=== PATIENT | female | born 1965 | race Caucasian/White ===

== ENCOUNTER → 2016-07-25 | Day surgery (SDC) | payer OTHER ==
[~2016-07-25] MED LIST: ACETAMINOPHEN 1000 MG/100 ML VIAL IV ONE; BACITRACIN IM FOR SOLN 50,000 UNIT VIAL ONE; BUPIVACAINE/EPINEPHRINE 0.25% PF 30 ML VIAL ONE; CYMB60CA PO; DOXY100T PO; FAMC500T23 PO; GENTAMICIN SULFATE 80 MG/2 ML VIAL ONE; LACTATED RINGER'S 1000 ML INJ 1,000 ML ONE; LIDOCAINE 1%/EPINEPHrine 1:100,000 SOLN 30 ML VIAL ONE; MIDAZOLAM HCL 2 MG/2 ML VIAL ONE; ONDANSETRON HCL 4 MG/2 ML VIAL IV PUSH ONE; PROPOFOL 100 MG/10 ML INJ IV ONE; PSEU30TA PO; REST0.05 OU; SODIUM CHLORIDE 0.9% INJ 10 ML ONE; SPIR25 PO; SYNT88TA PO; TAB-TAB PO; TAMO20TA4 PO; TIZA2TAB PO; TRAZ50TA78 PO; VANCOMYCIN 500 MG VIAL ONE
--- NOTE | 2016-07-25 09:02 | TN ---
cc: DIANNA LAWRENCE M.D. DATE OF SURGERY: 07/25/2016 PREOPERATIVE DIAGNOSIS Bilateral mastectomy with further encapsulation of the left breast and asymmetry bilaterally. POSTOPERATIVE DIAGNOSIS Bilateral mastectomy with further encapsulation of the left breast and asymmetry bilaterally. PROCEDURE Bilateral removal and replacement of implants with SRX Adriano Petersen 525. Serial number of the right breast implant [id number]. Serial number of the left breast implant device [id number]. We did some capsulotomies. Lateral capsulorrhaphies were done in the right breast. Reinforcement of the villanueva on the left breast utilizing 6 x 16 AlloDerm thick. COMPLICATIONS None. DRAINS None. DETAILS OF PROCEDURE She was properly consented, marked and properly anesthetized. The skin was sterilized with Betadine solution, sterile draping applied. Through the previous inframammary incision a trapdoor incision was carried out and the implant was removed without any difficulty. Irrigation with antibiotic solution was carried out in the pocket. Capsulorrhaphies were done on the lateral wall of the right breast and capsulotomies where needed in order to establish a soft contour. With this our attention was directed to the left breast where indeed the implant was found to have on a linear crease a defect. This appeared to be micro leaking however there was definitely a ruptured implant. After this was properly removed and thoroughly irrigated, I performed the proper capsulotomies not only in the horizontal but radial aspect in order to accommodate the new implant. To avoid further contraction I proceeded and performed the reinforcement with a 6 x 16 AlloDerm which was anchored in each corner down to the inframammary fold and to the chest wall medially and laterally. The new implant was introduced and the ADM properly wrapped this area and secured utilizing #1 nylon suture with Xeroform pledgets. The patient was sat up assuring best symmetry possible. I proceeded and closed the wounds utilizing multiple layers of 2-0 Monocryl suture. After Mastisol, Steri-Strips, absorbent dressings and a snug brassiere were applied. Overall the patient tolerated the procedure well. She was awakened, extubated in the operating room and transferred back to the post-anesthesia care unit in stable condition. No complications were appreciated. The patient tolerated the procedure fairly well. MD IQRA Jaffe/GLENNY /8:48 AM 8:54 AM MTDD
== END | disposition home or self-care (01) ==
LOC: ESDC 06:04
PROVIDERS: ATTEND Plastic Surgery
DX: Z85.3 Personal history of malignant neoplasm of breast (principal); N64.89 Other specified disorders of breast
CPT/HCPCS: 00402; 15777; 19380; C1789; J0131; J1580; J2250; J2405; J3010; J3370; J7120; Q4116